=== PATIENT | female | born 1995 | race Hispanic/Latino ===

== ENCOUNTER 2017-02-26 10:04 | Emergency (ER) | payer MEDICAID ==
[~2017-02-26] VITALS: Ht 157.5 cm; Wt 50.0 kg
[~2017-02-26 10:04] MED LIST: BACTRIM DS1 TAB PO; ULTRAM50 M1 PO
[2017-02-26] MEDS ORDERED: CEPHALEXIN500 MG PO (12:11)
[2017-02-26 12:17] VITALS: BP 140/90
== END 2017-02-26 12:19 | disposition home or self-care (01) | DRG 153 ==
LOC: ED 10:04
DX: J02.9 Acute pharyngitis, unspecified (principal); I88.9 Nonspecific lymphadenitis, unspecified